=== PATIENT | female | born 1945 | race Caucasian/White ===

== ENCOUNTER 2020-05-31 12:34 | Emergency (ER) | payer MEDICARE ==
[~2020-05-31 12:34] MED LIST: ASPIRIN CHEWABL81 MG PO; AUGMENTIN 875-1 EACH PO; BENTYL10 MG PO; CEFDINIR300 MG PO; CYANOCOBAL1000 MCG/1 IM; CYANOCOBAL1000 MCG/M IM; LACTINEX1 EACH PO; LIPITOR40 MG PO; MAG-OXIDE 400M400 MG PO; NAPROXEN500 MG PO; PRILOSEC20 MG PO; TRAMADOL HCL50 MG PO; VIBRAMYCIN100 MG PO; VITAMIN D50000 UNIT PO; XARELTO15 MG PO; XARELTO20 MG PO
[2020-05-31 13:36] LABS: BASOPHIL 0.4 % (0-2); EOSINOPHIL 1.9 % (0-7); HCT 44.8 % (37.0-47.0); HGB 14.2 g/dl (12.5-16.0); MCH 30.3 pg (25.0-31.0); MCHC 31.7 g/dL (32.0-36.0); MCV 95.7 fL (78.0-100.0); MONOCYTE 5.7 % (0-12); MPV 12.1 fL (6.0-9.5); NEUTROPHIL 67.7 % (41-80); NRBC 0; PLT 287 K/uL (150-400); RBC 4.68 M/uL (4.20-5.40); WBC 11.3 K/uL (4.0-10.5)
[2020-05-31 13:40] LABS: BILIRUBIN NEGATIVE (NEGATIVE); BLOOD 3+ Ery/uL (NEGATIVE); CLARITY HAZY (CLEAR); COLOR YELLOW (YELLOW); GLUCOSE (U) NORMAL (NORMAL); LEUKOCYTES NEGATIVE Leu/uL (NEGATIVE); NITRITE NEGATIVE (NEGATIVE); PROTEIN TRACE (LOW) mg/dL (NEGATIVE); SPECIFIC GRAVITY 1.025 (1.001-1.030); UROBILINOGEN 0.2 mg/dL (0.2-1.0)
[2020-05-31 13:46] LABS: BACTERIA 1+; URINARY RBC TNTC
[2020-05-31 13:58] LABS: CREATININE 0.82 mg/dL (0.51-0.95); POTASSIUM 4.2 mmol/L (3.5-5.1)
[2020-05-31] MEDS ORDERED: NORCO 5-325 TA1 EACH PO (15:21)
[2020-05-31] MEDS ORDERED: ONDANSETRON ODT4 MG PO (15:21)
[2020-05-31] MEDS ORDERED: FLOMAX 0.4 MG0.4 MG PO (15:21)
== END 2020-05-31 15:36 | disposition home or self-care (01) ==
LOC: FER 12:34
PROVIDERS: Emergency Medicine
DX: N13.2 Hydronephrosis with renal and ureteral calculous obstruction (principal); I10 Essential (primary) hypertension; Z87.442 Personal history of urinary calculi; Z90.81 Acquired absence of spleen; Z88.5 Allergy status to narcotic agent
CPT/HCPCS: 36415; 80048; 81001; 85025; J1885; J2405

== ENCOUNTER 2021-11-15 15:58 | Day surgery (SDCO) | payer MEDICARE ==
[~2021-11-15] VITALS: Ht 167.6 cm; Wt 95.3 kg
[~2021-11-15 15:58] MED LIST changes: +FLOMAX 0.4 MG0.4 MG PO; +NORCO 5-325 TA1 EACH PO; +ONDANSETRON ODT4 MG PO
[2021-11-15 17:11] LABS: BASOPHIL 0.5 % (0-2); EOSINOPHIL 1.6 % (0-7); HCT 44.4 % (37.0-47.0); HGB 14.3 g/dl (12.5-16.0); LYMPHOCYTE 39.3 % (15-48); MCH 30.5 pg (25.0-31.0); MCHC 32.2 g/dL (32.0-36.0); MCV 94.7 fL (78.0-100.0); MONOCYTE 7.8 % (0-12); MPV 12.8 fL (6.0-9.5); NEUTROPHIL 50.5 % (41-80); NRBC 0; PLT 251 K/uL (150-400); RBC 4.69 M/uL (4.20-5.40); RDW 14.3 % (11.5-14.0)
[2021-11-15 17:24] LABS: ALBUMIN 3.5 g/dL (3.4-5.0); BILIRUBIN - TOTAL 0.5 mg/dL (0.2-1.0); BUN/CREAT RATIO (CALC) 14.3 RATIO; CREATININE 0.77 mg/dL (0.51-0.95); GLOBULIN (CALCULATION) 4.2 g/dL; POTASSIUM 3.8 mmol/L (3.5-5.1); TOTAL PROTEIN 7.7 g/dL (6.4-8.2)
[2021-11-15 17:39] LABS: LACTIC ACID 0.9 mmol/L (0.4-1.9)
[2021-11-15 18:09] LABS: INFLUENZA A NAA NEGATIVE (NEGATIVE)
[2021-11-15 18:15] LABS: CORONAVIRUS 2019 SARS-COV-2 POSITIVE (NEGATIVE)
[2021-11-15] MEDS ORDERED: PAXLOVID CO-PA1 EAC1 PO (19:17)
[2021-11-15] MEDS ORDERED: TOPROL XL 25MG25 MG PO (22:20)
[2021-11-15] MEDS ORDERED: SINGULAIR10 MG PO (22:22)
[2021-11-15] MEDS ORDERED: BENTYL10 MG PO (22:22)
[2021-11-15] MEDS ORDERED: ZOLOFT50 MG PO (22:23)
[2021-11-15] MEDS ORDERED: LIPITOR40 MG PO (22:23)
[2021-11-15] MEDS ORDERED: CENTRUM SILVER1 EAC4 PO (22:25)
[2021-11-15] MEDS ORDERED: NEXIUM40 MG PO (22:26)
[2021-11-15] MEDS ORDERED: ALLEGRA ALLERG180 MG PO (22:30)
[2021-11-15] MEDS ORDERED: ALIGN4 MG PO (22:31)
[2021-11-15] MEDS ORDERED: VENTOLIN (2.5 MG/3 M INH (22:32)
[2021-11-15] MEDS ORDERED: FLOMAX0.4 MG PO (22:34)
[2021-11-15] MEDS ORDERED: ONDANSETRON ODT4 MG PO (22:36)
[2021-11-15] MEDS ORDERED: IMITREX50 MG PO (22:36)
[2021-11-16] MEDS ORDERED: CYANOCOBAL1000 MCG/1 IM (00:34)
[2021-11-16] MEDS ORDERED: ATROVENT HFA12.9 GM INH (11:15)
[2021-11-16] MEDS ORDERED: PAXLOVID 150-11 EACH PO (11:18)
--- NOTE | 2021-11-16 13:01 | NUR ---
11/16/21 Ms. Suarez lives at [facility]. She has a C-PAP, nebulizer, rw, and cane. She walks without the use of DME. Ms. Suarez drives and is able to manage her own affairs. She has a PCP.
== END 2021-11-16 16:00 | disposition home or self-care (01) ==
LOC: FER 15:58 → FMS 20:39
PROVIDERS: Emergency Medicine; ADMIT Internal Medicine
DX: U07.1 COVID-19 (principal); R74.01 Elevation of levels of liver transaminase levels; E11.65 Type 2 diabetes mellitus with hyperglycemia; E78.5 Hyperlipidemia, unspecified; J98.11 Atelectasis; D68.51 Activated protein C resistance; K21.9 Gastro-esophageal reflux disease without esophagitis; M19.90 Unspecified osteoarthritis, unspecified site; G47.33 Obstructive sleep apnea (adult) (pediatric); E66.9 Obesity, unspecified; F32.A Depression, unspecified; Z86.711 Personal history of pulmonary embolism; Z99.89 Dependence on other enabling machines and devices; Z79.899 Other long term (current) drug therapy; Z88.5 Allergy status to narcotic agent; Z88.6 Allergy status to analgesic agent; Z68.33 Body mass index [BMI] 33.0-33.9, adult
CPT/HCPCS: 36415; 71275; 80053; 82728; 83540; 83550; 83605; 83690; 83735; 83880; 84145; 84484; 85025; 93005; 94640; C9399; G0378; J1100; J1650; J7050; Q9967; U0002

== ENCOUNTER 2022-01-17 05:30 | Emergency (ER) | payer MEDICARE ==
[~2022-01-17] VITALS: Ht 167.6 cm; Wt 92.5 kg
[~2022-01-17 05:30] MED LIST changes: +ALIGN4 MG PO; +ALLEGRA ALLERG180 MG PO; +ATROVENT HFA12.9 GM INH; +CENTRUM SILVER1 EAC4 PO; +FLOMAX0.4 MG PO; +IMITREX50 MG PO; +NEXIUM40 MG PO; +PAXLOVID 150-11 EACH PO; +PAXLOVID CO-PA1 EAC1 PO; +SINGULAIR10 MG PO; +TOPROL XL 25MG25 MG PO; +VENTOLIN (2.5 MG/3 M INH; +ZOLOFT50 MG PO
[2022-01-17 06:47] LABS: BASOPHIL 0.2 % (0-2); EOSINOPHIL 0 % (0-7); HCT 45.4 % (37.0-47.0); HGB 15.1 g/dl (12.5-16.0); LYMPHOCYTE 2.9 % (15-48); MCH 31.3 pg (25.0-31.0); MCHC 33.3 g/dL (32.0-36.0); MONOCYTE 3.8 % (0-12); MPV 12.1 fL (6.0-9.5); NEUTROPHIL 92.2 % (41-80); NRBC 0; PLT 256 K/uL (150-400); RBC 4.83 M/uL (4.20-5.40); RDW 13.9 % (11.5-14.0)
[2022-01-17 06:52] LABS: INR 1.02 (0.9-1.2); PROTHROMBIN TIME 13.1 SECONDS (11.9-13.9)
[2022-01-17 06:54] LABS: D-DIMER 2.39 ug/mLFEU (0.00-0.41)
[2022-01-17 06:55] LABS: BILIRUBIN NEGATIVE (NEGATIVE); BLOOD 2+ Ery/uL (NEGATIVE); CLARITY CLEAR (CLEAR); COLOR YELLOW (YELLOW); GLUCOSE (U) NORMAL (NORMAL); LEUKOCYTES 1+ Leu/uL (NEGATIVE); NITRITE NEGATIVE (NEGATIVE); PROTEIN NEGATIVE (NEGATIVE); UROBILINOGEN 0.2 mg/dL (0.2-1.0)
[2022-01-17 06:57] LABS: WBC 33.9 K/uL (4.0-10.5)
[2022-01-17 06:58] LABS: PTT 19.9 SECONDS (24.9-34.6)
[2022-01-17 07:10] LABS: BACTERIA TRACE; MUCOUS TRACE
[2022-01-17 07:13] LABS: LACTIC ACID 3.6 mmol/L (0.4-1.9)
[2022-01-17 07:16] LABS: ALBUMIN 3.2 g/dL (3.4-5.0); BILIRUBIN - TOTAL 0.6 mg/dL (0.2-1.0); BUN/CREAT RATIO (CALC) 29.2 RATIO; CREATININE 0.65 mg/dL (0.51-0.95); GLOBULIN (CALCULATION) 3.9 g/dL; MAGNESIUM 1.6 mg/dL (1.8-2.4); POTASSIUM 3.6 mmol/L (3.5-5.1); TOTAL PROTEIN 7.1 g/dL (6.4-8.2)
[2022-01-17 08:49] LABS: CORONAVIRUS 2019 SARS-COV-2 NEGATIVE (NEGATIVE); INFLUENZA A NAA NEGATIVE (NEGATIVE)
== END 2022-01-17 13:01 | disposition home or self-care (01) ==
LOC: FER 05:30
PROVIDERS: Emergency Medicine
DX: A41.9 Sepsis, unspecified organism (principal); M31.10 Thrombotic microangiopathy, unspecified; I21.3 ST elevation (STEMI) myocardial infarction of unspecified site; I24.9 Acute ischemic heart disease, unspecified; I21.4 Non-ST elevation (NSTEMI) myocardial infarction; E11.9 Type 2 diabetes mellitus without complications; Z86.16 Personal history of COVID-19; Z20.822 Contact with and (suspected) exposure to COVID-19
CPT/HCPCS: 36415; 36600; 71045; 71275; 72193; 80053; 81001; 82803; 83605; 83735; 83880; 84145; 84484; 85025; 85379; 85610; 85730; 87040; 87088; 93005; 94640; 94664; 94762; C9113; J1170; J1644; J2405; J2543; J3475; J7030; Q9967; U0002